=== PATIENT | female | born 1980 | race Caucasian/White ===

== ENCOUNTER 2021-05-29 11:24 | Emergency (ER) | payer OTHER ==
[~2021-05-29] VITALS: Ht 172.7 cm; Wt 90.1 kg
[2021-05-29 11:55] VITALS: BP 138/90
--- NOTE | 2021-05-29 13:27 | PHYS DOC ---
Past History Additional Past Medical Histor: pvc's, g6pd deficiancy (DANABARRIE Brown [employer]) Past Surgical History: Other Additional Past Surgical Histo: right ankle, wisdom teeth (DMITRYBARRIE DURON [employer]) Adult General Chief Complaint Chief Complaint: NOSEBLEED HPI HPI Patient is a 41-year-old female patient presented to the ED today to be evaluated for nose injury. Patient states she was playing with her dog which jumped up and hit her on the nose. She states she had nose bleeding which stopped prior to coming to the ED. Patient denies any loss of consciousness. She is reporting mild pain to the nose. Patient is concerned she could have a broken nose. (DANABARRIE Brown [employer]) Review of Systems Review of Systems Constitutional: Denies fever or chills [] Eyes: Denies change in visual acuity, redness, or eye pain [] HENT: Reports no injury, nose bleeding, denies nasal congestion or sore throat [] Respiratory: Denies cough or shortness of breath [] Cardiovascular: No additional information not addressed in HPI [] GI: Denies abdominal pain, nausea, vomiting, bloody stools or diarrhea [] : Denies dysuria or hematuria [] Musculoskeletal: Denies back pain or joint pain [] Integument: Denies rash or skin lesions [] Neurologic: Denies headache, focal weakness or sensory changes [] All other systems were reviewed and found to be within normal limits, except as documented in this note. (DMITRYBARRIE DURON [employer]) Current Medications Current Medications Current Medications Medications (Trade) Dose Ordered Sig/Carlos Start Time Stop Time Status Last Admin Dose Admin Ibuprofen (Motrin) 600 mg 1X ONCE 05/29/21 13:30 05/29/21 13:31 UNV (DMITRYBARRIE DURON [employer]) Allergies Allergies Allergies Coded Allergies Type Severity Reaction Last Updated Verified Sulfa (Sulfonamide Antibiotics) Allergy Unknown 05/29/21 Yes (BARRIE MCKENNA [employer]) Physical Exam Physical Exam Constitutional: Well developed, well nourished, no acute distress, non-toxic appearance. [] HENT: Normocephalic, bilateral external ears normal, oropharynx moist, no oral exudates, right nasal cavity with dried blood, no active bleeding noted bilaterally Eyes: PERRLA, EOMI, conjunctiva normal, no discharge. [] Neck: Normal range of motion, no tenderness, supple, no stridor. [] Cardiovascular:Heart rate regular rhythm, no murmur [] Lungs & Thorax: Bilateral breath sounds clear to auscultation [] Abdomen: Bowel sounds normal, soft, no tenderness, no masses, no pulsatile masses. [] Skin: Warm, dry, no erythema, no rash. [] Back: No tenderness, no CVA tenderness. [] Extremities: No tenderness, no cyanosis, no clubbing, ROM intact, no edema. [] Neurologic: Alert and oriented X 3, normal motor function, normal sensory fun ction, no focal deficits noted. [] Psychologic: Affect normal, judgement normal, mood normal. [] (BARRIE MCKENNA APRN) Current Patient Data Vital Signs Vital Signs Date Time Temp Pulse Resp B/P (MAP) Pulse Ox O2 Delivery O2 Flow Rate FiO2 05/29/21 11:55 97.9 78 20 138/90 (106) 98 Room Air (BARRIE MCKENNA APRN) EKG EKG [] (BARRIE MCKENNA APRN) Radiology/Procedures Radiology/Procedures []PROCEDURE: CT MAXILLOFACIAL WO CONTRAST CT MAXILLOFACIAL WITHOUT CONTRAST History: Nose pain, bleeding hit on face with dog Comparison: None. Technique: Noncontrast CT of the maxillofacial bones. Findings: No acute facial fracture identified. The bilateral orbits are symmetric and unremarkable. Periorbital soft tissues are normal. The paranasal sinuses and visualized mastoid air cells are well aerated. Impression: 1. No acute facial fracture. ---- Exposure: One or more of the following individualized dose reduction techniques were utilized for this examination: 1. Automated exposure control 2. Adjustment of the mA and/or kV according to patient size 3. Use of iterative reconstruction technique. Electronically signed by: Michael Ash MD (05/29/2021 2:56 PM) [facility] DICTATED AND SIGNED BY: MICHAEL ASH MD DATE: 05/29/21 1453 CC: BARRIE MCKENNA APRN; PCP,NO ~MTH0 0 (BARRIE MCKENNA APRN) Heart Score C/O Chest Pain: N/A Risk Factors: Risk Factors: DM, Current or recent (<one month) smoker, HTN, HLP, family history of CAD, obesity. Risk Scores: Risk Factors: DM, Current or recent (<one month) smoker, HTN, HLP, family history of CAD, obesity. (BARRIE MCKENNA APRN) Course & Med Decision Making Course & Med Decision Making Pertinent Labs and Imaging studies reviewed. (See chart for details) This is a 41-year-old female patient presented to the ED today complaining of nose injury, patient was accidentally hit on the nose by her own dog. She had nosebleeding prior to coming to the ED which has stopped. Tetanus up-to-date. CT maxillofacial is negative. Discharge to home. OTC pain relievers. Follow- up with PCP in 1 week. Provided return precautions. (BARRIE MCKENNA APRN) Dragon Disclaimer Dragon Disclaimer This electronic medical record was generated, in whole or in part, using a voice recognition dictation system. (BARRIE MCKENNA APRN) Attending Co-Sign The patient was seen and interviewed as well as examined at the bedside. The chart was reviewed. The case was discussed. Agree with the plan of care. (RAMON VOGT DO) Departure Departure: Impression: Primary Impression: Contusion of nose, initial encounter Disposition: HOME / SELF CARE / HOMELESS Condition: STABLE Referrals: PCP,NO (PCP) follow up in one week with your doctor Patient Instructions: Facial or Scalp Contusion, [id number] Additional Instructions: You were evaluated in the emergency room for a nose contusion. Your CT of maxillofacial which includes your nose is negative for any acute findings. Continue to ice your nose and elevate your head. You can take [id number] pain relievers as needed. Follow-up with your doctor in 1 week BARRIE MCKENNA APRN May 29, 2021 13:27 RAMON VOGT DO May 31, 2021 06:10
[2021-05-29] MEDS ORDERED: IBUPROFEN 600 MG TABLET. PO ONE (14:00)
--- NOTE | 2021-05-29 14:58 | RAD ---
CT MAXILLOFACIAL WITHOUT CONTRAST History: Nose pain, bleeding hit on face with dog Comparison: None. Technique: Noncontrast CT of the maxillofacial bones. Findings: No acute facial fracture identified. The bilateral orbits are symmetric and unremarkable. Periorbital soft tissues are normal. The paranasal sinuses and visualized mastoid air cells are well aerated. Impression: 1. No acute facial fracture. ---- Exposure: One or more of the following individualized dose reduction techniques were utilized for thi s examination: 1. Automated exposure control 2. Adjustment of the mA and/or kV according to patient size 3. Use of iterative reconstruction technique. Electronically signed by: Michael Mendoza MD (05/29/2021 2:56 PM) [facility]
== END 2021-05-29 15:13 | disposition home or self-care (01) ==
LOC: ER 11:24
DX: S00.33XA Contusion of nose, initial encounter (principal); Z88.2 Allergy status to sulfonamides; W54.1XXA Struck by dog, initial encounter; Y93.89 Activity, other specified; Y92.89 Other specified places as the place of occurrence of the external cause; Y99.8 Other external cause status
CPT/HCPCS: 70486; 99284